=== PATIENT | male | born 1975 | race Caucasian/White ===

== ENCOUNTER 2017-11-06 19:14 | Emergency (ER) | payer OTHER ==
[~2017-11-06] VITALS: Ht 160 cm; Wt 108.9 kg
== END 2017-11-06 22:09 | disposition home or self-care (01) ==
LOC: ER 19:14
DX: J35.01 Chronic tonsillitis (principal); K29.70 Gastritis, unspecified, without bleeding

== ENCOUNTER 2018-01-22 13:52 | Emergency (ER) | payer OTHER ==
[~2018-01-22] VITALS: Ht 152.4 cm; Wt 86.2 kg
[2018-01-22] MEDS ORDERED: INDOMETHACIN50 MG PO (17:39)
== END 2018-01-22 18:48 | disposition home or self-care (01) ==
LOC: ER 13:52
DX: M25.562 Pain in left knee (principal)

== ENCOUNTER 2018-07-21 22:45 | Emergency (ER) | payer OTHER ==
[~2018-07-21] VITALS: Ht 160 cm; Wt 108.9 kg
[~2018-07-21 22:45] MED LIST: INDOMETHACIN50 MG PO
[2018-07-22] MEDS ORDERED: MUCINEX1200 MG PO (02:19)
== END 2018-07-22 02:20 | disposition home or self-care (01) ==
LOC: ER 22:45
DX: B34.9 Viral infection, unspecified (principal)

== ENCOUNTER 2019-01-09 15:36 | Emergency (ER) | payer OTHER ==
[~2019-01-09] VITALS: Ht 160 cm; Wt 110.2 kg
[~2019-01-09 15:36] MED LIST changes: +MUCINEX1200 MG PO
[2019-01-09] MEDS ORDERED: LISINOPRIL10 MG (15:45)
== END 2019-01-09 18:46 | disposition home or self-care (01) ==
LOC: ER 15:36
DX: G57.82 Other specified mononeuropathies of left lower limb (principal)

== ENCOUNTER 2021-01-03 12:39 | Emergency (ER) | payer OTHER ==
[~2021-01-03] VITALS: Ht 160 cm; Wt 117.9 kg
[~2021-01-03 12:39] MED LIST changes: +LISINOPRIL10 MG
[2021-01-03] MEDS ORDERED: VITAMIN D3-ALO1 EACH PO (22:20)
[2021-01-03] MEDS ORDERED: VITAMIN C WIT1000 MG PO (22:20)
[2021-01-03] MEDS ORDERED: DECADRON6 MG PO (22:20)
[2021-01-03] MEDS ORDERED: MUCINEX DM ER1 EAC1 PO (22:20)
[2021-01-03] MEDS ORDERED: AZITHROMYCIN500 MG PO (22:20)
[2021-01-03] MEDS ORDERED: COLCHICINE0.6 MG PO (22:20)
[2021-01-03] MEDS ORDERED: IVERMECTIN3 MG PO (22:20)
[2021-01-03] MEDS ORDERED: PROAIR RESPICL90 MCG IH (22:20)
[2021-01-03] MEDS ORDERED: ACETAMINOPHEN650 M2 PO (22:34)
== END 2021-01-03 22:38 | disposition home or self-care (01) ==
LOC: ER 12:39
DX: U07.1 COVID-19 (principal); J12.89 Other viral pneumonia; B34.9 Viral infection, unspecified; Z03.818 Encounter for observation for suspected exposure to other biological agents ruled out